=== PATIENT | female | born 1990 | race Caucasian/White ===

== ENCOUNTER 2019-01-23 16:30 | Emergency (ER) | payer SELFPAY ==
[2019-01-23] MEDS ORDERED: IBUPROFEN 600 MG TABLET PO ONE (17:32)
[2019-01-23] MEDS ORDERED: ACETAMINOPHEN 325 MG TABLET PO ONE (17:32)
--- NOTE | 2019-01-23 17:35 | ER Document Report ---
HPI - HPI Time Seen by Provider: 01/23/19 17:26 Pain Level: 2 Context: Patient is a 28-year-old female who presents to the emergency department with a chief complaint of her right foot and ankle pain. Yesterday afternoon she was walking down some concrete stairs and slipped and hurt her ankle and foot. She is able to walk on it, but has been favoring her left side. She took some ibuprofen 800 mg around 9:00 this morning. She denies any past medical history and does not take any medications. - CONSTITUTIONAL Constitutional: DENIES: Fever, Chills - EENT EENT: DENIES: Ear Pain, Congestion - NEURO Neurology: DENIES: Headache - RESPIRATORY Respiratory: DENIES: Trouble Breathing - REPRODUCTIVE Reproductive: DENIES: : - MUSCULOSKELETAL Musculoskeletal: REPORTS: Extremity pain - Right foot, right lower leg, Swelling - Right Foot - DERM Skin Color: Normal Skin Problems: Bruise - Right medial lower leg Past Medical History - Social History Smoking Status: Current Every Day Smoker Chew tobacco use (# tins/day): No Frequency of alcohol use: Occasional Drug Abuse: None Family History: None, Reviewed & Not Pertinent Patient has suicidal ideation: No Patient has homicidal ideation: No Renal/ Medical History: Denies: Hx Kidney Stones, Hx Ovarian Cysts, Hx Peritoneal Dialysis, Hx Pelvic Inflammatory Disease Malignancy Medical History: Denies: Hx Breast Cancer, Hx Cervical Cancer - precancerous cells and dyplagia of cervix, Hx Ovarian Cancer Musculoskeletal Medical History: Denies Hx Fibromyalgia Psychiatric Medical History: Reports: Hx Depression Denies: Hx Bipolar Disorder, Hx Post Traumatic Stress Disorder, Hx Schizophrenia Traumatic Medical History: Denies: Hx Fractures Past Surgical History: Reports: Hx Section, Hx Tubal Ligation - Immunizations Hx Diphtheria, Pertussis, Tetanus Vaccination: Yes - 08/2013 Vertical Provider Document - CONSTITUTIONAL Agree With Documented VS: Yes Exam Limitations: No Limitations General Appearance: No Apparent Distress - INFECTION CONTROL TRAVEL OUTSIDE OF THE [place] IN LAST 30 DAYS: No - HEENT HEENT: Atraumatic, Normocephalic, PERRLA - NECK Neck: Normal Inspection - RESPIRATORY Respiratory: No Respiratory Distress - CARDIOVASCULAR Cardiovascular: Regular Rate, Regular Rhythm Pulses: Normal: Posterior tibial, Dorsalis pedis - MUSCULOSKELETAL/EXTREMETIES Musculoskeletal/Extremeties: Tender - Right lower leg, right foot, Eccymosis - Right medial lower leg - NEURO Level of Consciousness: Awake, Alert, Appropriate Motor/Sensory: No Motor Deficit, No Sensory Deficit - DERM Integumentary: Warm, Dry Course - Re-evaluation Re-evalutation: 01/23/19 18:45 There is no acute fracture at this time. Patient will be provided crutches, an Dudley wrap, and a postop boot to help protect her foot. Instructions on ibuprofen and Tylenol use were given. No vascular compromise noted. I do not suspect a tendon rupture. Follow-up precautions were given. Verbal discharge instructions were given to the patient. They verbalized understanding. They a re stable for discharge. - Vital Signs Vital signs: Temp Pulse Resp BP Pulse Ox 97.7 F 80 18 132/80 H 100 01/23/19 16:33 01/23/19 16:33 01/23/19 16:33 01/23/19 16:33 01/23/19 16:33 Procedures - Immobilization Right Foot Pre-Proc Neuro Vasc Exam: Normal Immobilizer type: Dudley wrap, Ankle stirrup, Crutches, Post-op shoe Performed by: PCT Post-Proc Neuro Vasc Exam: Normal, Unchanged from pre-exam Alignment checked and good: Yes Discharge - Discharge Clinical Impression: Right foot pain Right ankle pain Qualifiers: Chronicity: acute Qualified Code(s): M25.571 - Pain in right ankle and joints of right foot Condition: Stable Disposition: HOME, SELF-CARE Instructions: Use of Crutches ([facility]), Ice & Elevation ([facility]), Soft Ankle Splint ([facility]) Additional Instructions: You are seen today in the emergency department for right foot, leg, and ankle pain. There is no fracture at this time. You are being placed in an Dudley wrap, postop boot, and are being given crutches to help protect her foot. Make sure you rest, apply ice (20 minutes on, 20 minutes off), elevate your leg, and to take ibuprofen and Tylenol as needed for pain. Follow-up with 1 of the clinics below if you continue to have pain. You can also follow-up with orthopedics if needed. Forms: Smoking Cessation Education Referrals: [facility] [Provider Group] - Follow up as needed [facility] [Provider Group] - Follow up as needed HANH HUDSON MD [ACTIVE STAFF] - Follow up as needed
--- NOTE | 2019-01-23 18:10 | RADIOLOGY REPORT (SQ) ---
EXAM DESCRIPTION: TIBIA FIBULA RIGHT COMPLETED DATE/TIME: 01/23/2019 5:51 pm REASON FOR STUDY: fall/injury COMPARISON: None. NUMBER OF VIEWS: Two views. TECHNIQUE: Two radiographic images acquired of the right tibia and fibula to include the knee and an kle in at least one projection. LIMITATIONS: None. FINDINGS: MINERALIZATION: Normal. BONES: No acute fracture or dislocation. No worrisome bone lesions. SOFT TISSUES: No obvious swelling or foreign body. OTHER: No other significant finding. IMPRESSION: No fracture. TECHNICAL DOCUMENTATION: JOB ID: [id number] [place]-72 2010 [employer]- All Rights Reserved Reading location - IP/workstation name: [email or web address]
--- NOTE | 2019-01-23 18:11 | RADIOLOGY REPORT (SQ) ---
EXAM DESCRIPTION: FOOT RIGHT COMPLETE COMPLETED DATE/TIME: 01/23/2019 5:51 pm REASON FOR STUDY: fall/injury COMPARISON: None. EXAM PARAMETERS: NUMBER OF VIEWS: Three views. TECHNIQUE: AP, lateral and oblique radiographic images acquired of the right foot. LIMITATIONS: None. FINDINGS: MINERALIZATION: Normal. BONES: No acute fracture or dislocation. No worrisome bone lesions. JOINTS: No effusion. SOFT TISSUES: No significant soft tissue swelling. No radiopaque foreign body. OTHER: No other significant finding. IMPRESSION: NO FRACTURE. TECHNICAL DOCUMENTATION: JOB ID: [id number] [place]-72 2010 [employer]- All Rights Reserved Reading location - IP/workstation name: [email or web address]
[2019-01-23 18:55] VITALS: BP 114/97
== END 2019-01-23 18:52 | disposition home or self-care (01) ==
LOC: ER 16:30
DX: M79.671 Pain in right foot (principal); M79.89 Other specified soft tissue disorders; S80.11XA Contusion of right lower leg, initial encounter; M25.571 Pain in right ankle and joints of right foot; W10.8XXA Fall (on) (from) other stairs and steps, initial encounter; F17.200 Nicotine dependence, unspecified, uncomplicated
CPT/HCPCS: 73630; 73590; L1902; 99283